=== PATIENT | female | born 1975 | race African-American/Black ===

== ENCOUNTER 2022-08-30 12:05 | Inpatient (IN) | payer OTHER ==
[2022-08-30] MEDS ORDERED: HYDROmorphone HCl 2 MG/ML VIAL IVPUSH ONE (13:38)
[2022-08-30] MEDS ORDERED: HYDROmorphone HCL CARPU-JECT 2 MG/1 ML DISP.SYRIN IVPUSH ONE (13:38)
[2022-08-30] MEDS ORDERED: HYDROmorphone HCl 2 MG/ML VIAL ONE (13:58)
[2022-08-30 14:33] LABS: BASO % 0.8 % (0-2.0); EOS % 2.7 % (0-4.5); HEMOGLOBIN 13.9 GM/dL (10.7-15.3); LYMPH % 23.8 % (8-40); MCH 30.2 pg (25.7-33.7); MCHC 33.1 g/dl (32.0-36.0); MEAN CELL VOLUME 91.2 fl (80-96); MEAN PLT VOLUME 7.7 fl (7.5-11.1); MONO % 7.2 % (3.8-10.2); NEUT % 65.5 % (42.8-82.8); PLATELET COUNT 341 10^3/uL (134-434); RDW 14.2 % (11.6-15.6); WHITE BLOOD COUNT 9.4 K/mm3 (4.0-10.0)
[2022-08-30 14:42] LABS: CALCIUM 9.5 mg/dL (8.5-10.1)
[2022-08-30 14:44] LABS: BLOOD UREA NITROGEN 11.6 mg/dL (7-18)
[2022-08-30 14:46] LABS: CREATININE 0.9 mg/dL (0.55-1.3)
[2022-08-30 14:48] LABS: BILIRUBIN,TOTAL 0.4 mg/dL (0.2-1); TOT PROT 7.1 g/dl (6.4-8.2)
[2022-08-30 15:13] LABS: ACTIVATED PTT 29.5 SECONDS (25.2-36.5); INR 1.06 (0.83-1.09); PROTHROMBIN TIME (PATIENT) 12.2 SEC (9.7-13.0)
[2022-08-30] MEDS ORDERED: HYDROmorphone HCl 2 MG/ML VIAL IVPUSH PRN (22:58)
[2022-08-30] MEDS ORDERED: ACETAMINOPHEN 1000 MG/100 ML BAG IVPB PRN (23:00)
[2022-08-31] MEDS: ACETAMINOPHEN 1000 MG/100 ML BAG IVPB SCH ×5 (02:14→20:09)
[2022-08-31] MEDS: PREGABALIN 50 MG CAPSULE PO SCH ×4 (02:14→21:33)
[2022-08-31 05:07] VITALS: BMI 33.5
[2022-08-31] MEDS: LACTATED RINGERS SOLUTION 1,000 ML/1,000 ML INFUS.BAG IV SCH (09:17)
[2022-08-31] MEDS: SERTRALINE HCL 50 MG TABLET (FP) PO SCH (09:25)
[2022-08-31] MEDS: DOCUSATE SODIUM 100 MG CAPSULE (FP) PO SCH ×2 (09:25→21:33)
[2022-08-31 10:07] LABS: BASO % 0.6 % (0-2.0); EOS % 3.4 % (0-4.5); HEMATOCRIT 39.2 % (32.4-45.2); HEMOGLOBIN 13.3 GM/dL (10.7-15.3); MCH 30.6 pg (25.7-33.7); MCHC 33.9 g/dl (32.0-36.0); MEAN CELL VOLUME 90.1 fl (80-96); MEAN PLT VOLUME 8.1 fl (7.5-11.1); MONO % 7.2 % (3.8-10.2); NEUT % 59.8 % (42.8-82.8); PLATELET COUNT 327 10^3/uL (134-434); RBC 4.36 M/mm3 (3.60-5.2); RDW 13.9 % (11.6-15.6); WHITE BLOOD COUNT 8.1 K/mm3 (4.0-10.0)
[2022-08-31 10:35] LABS: ALBUMIN 3.6 g/dl (3.4-5.0); BLOOD UREA NITROGEN 7.1 mg/dL (7-18); MAGNESIUM 2.3 mg/dL (1.8-2.4)
[2022-08-31 10:38] LABS: CREATININE 0.9 mg/dL (0.55-1.3); PHOSPHOROUS 4.3 mg/dL (2.5-4.9)
[2022-08-31 10:40] LABS: TOT PROT 6.5 g/dl (6.4-8.2)
[2022-08-31] MEDS: HYDROmorphone HCl 2 MG/ML VIAL IVPUSH PRN ×2 (13:02→21:33)
[2022-09-01] MEDS: ACETAMINOPHEN 1000 MG/100 ML BAG IVPB SCH ×4 (02:00→21:38)
[2022-09-01] MEDS: PREGABALIN 50 MG CAPSULE PO SCH ×3 (05:44→21:26)
[2022-09-01 09:34] LABS: BASO % 0.8 % (0-2.0); HEMATOCRIT 38.6 % (32.4-45.2); HEMOGLOBIN 13.4 GM/dL (10.7-15.3); LYMPH % 30.5 % (8-40); MCH 31.1 pg (25.7-33.7); MCHC 34.7 g/dl (32.0-36.0); MEAN CELL VOLUME 89.4 fl (80-96); MEAN PLT VOLUME 8.2 fl (7.5-11.1); MONO % 7.1 % (3.8-10.2); NEUT % 57.6 % (42.8-82.8); PLATELET COUNT 317 10^3/uL (134-434); RBC 4.32 M/mm3 (3.60-5.2); RDW 13.9 % (11.6-15.6)
[2022-09-01 10:08] LABS: CALCIUM 9.1 mg/dL (8.5-10.1)
[2022-09-01 10:09] LABS: ALBUMIN 3.3 g/dl (3.4-5.0); BLOOD UREA NITROGEN 9.3 mg/dL (7-18); MAGNESIUM 2.2 mg/dL (1.8-2.4)
[2022-09-01] MEDS: HYDROmorphone HCl 2 MG/ML VIAL IVPB PRN ×2 (10:09→20:37)
[2022-09-01] MEDS: SERTRALINE HCL 50 MG TABLET (FP) PO SCH (10:11)
[2022-09-01 10:12] LABS: CREATININE 0.8 mg/dL (0.55-1.3)
[2022-09-01 10:13] LABS: BILIRUBIN,TOTAL 0.8 mg/dL (0.2-1); TOT PROT 6.2 g/dl (6.4-8.2)
[2022-09-01] MEDS: LACTATED RINGERS SOLUTION 1,000 ML/1,000 ML INFUS.BAG IV SCH (11:23)
[2022-09-01] MEDS: DOCUSATE SODIUM 100 MG CAPSULE (FP) PO SCH ×2 (11:23→21:26)
[2022-09-01] MEDS: HEPARIN NA (PORCINE) 5,000 UNITS/ML 1ML VIAL SQ SCH (21:26)
[2022-09-02] MEDS: ACETAMINOPHEN 1000 MG/100 ML BAG IVPB SCH ×4 (01:52→19:33)
[2022-09-02] MEDS: HYDROmorphone HCl 2 MG/ML VIAL IVPB PRN ×4 (02:37→22:08)
[2022-09-02] MEDS: PREGABALIN 50 MG CAPSULE PO SCH ×3 (05:40→21:00)
[2022-09-02 10:30] LABS: INR 1.18 (0.83-1.09); PROTHROMBIN TIME (PATIENT) 13.6 SEC (9.7-13.0)
[2022-09-02 10:35] LABS: BASO % 0.7 % (0-2.0); HEMATOCRIT 39.5 % (32.4-45.2); HEMOGLOBIN 13.4 GM/dL (10.7-15.3); LYMPH % 36.9 % (8-40); MCH 30.6 pg (25.7-33.7); MEAN CELL VOLUME 90.2 fl (80-96); MEAN PLT VOLUME 8.1 fl (7.5-11.1); MONO % 7.6 % (3.8-10.2); NEUT % 50.8 % (42.8-82.8); PLATELET COUNT 323 10^3/uL (134-434); RBC 4.37 M/mm3 (3.60-5.2); WHITE BLOOD COUNT 7.6 K/mm3 (4.0-10.0)
[2022-09-02 10:56] LABS: CALCIUM 8.9 mg/dL (8.5-10.1)
[2022-09-02 10:57] LABS: ALBUMIN 3.3 g/dl (3.4-5.0); BLOOD UREA NITROGEN 8.3 mg/dL (7-18); MAGNESIUM 2.1 mg/dL (1.8-2.4)
[2022-09-02 11:00] LABS: CREATININE 0.8 mg/dL (0.55-1.3)
[2022-09-02 11:01] LABS: BILIRUBIN,TOTAL 0.6 mg/dL (0.2-1); TOT PROT 6.2 g/dl (6.4-8.2)
[2022-09-02] MEDS: HEPARIN NA (PORCINE) 5,000 UNITS/ML 1ML VIAL SQ SCH (11:24)
[2022-09-02] MEDS: DOCUSATE SODIUM 100 MG CAPSULE (FP) PO SCH ×2 (11:26→21:00)
[2022-09-02] MEDS: SERTRALINE HCL 50 MG TABLET (FP) PO SCH (11:26)
[2022-09-02 14:55] LABS: EPI CELLS 24 /uL (0-25.1); HYALINE CASTS 0 /uL (0-3.1); PH,URINE 7.5 (5.0-8.0); URINE APPEARANCE CLEAR; URINE BACTERIA 732 /uL (0-1359); URINE BILIRUBIN NEGATIVE (NEGATIVE); URINE COLOR YELLOW; URINE GLUCOSE (UA) NEGATIVE (NEGATIVE); URINE KETONE NEGATIVE (NEGATIVE); URINE LEUK ESTERASE 1+ (NEGATIVE); URINE NITRITE NEGATIVE (NEGATIVE); URINE PROTEIN NEGATIVE (NEGATIVE); URINE RBC 9 /uL (0-23.9); URINE UROBILINOGEN 0.2 mg/dL (0.2-1.0); URINE WBC 46 /uL (0-25.8)
[2022-09-02] MEDS ORDERED: CEFTRIAXONE 1 GM in DEXTROSE 5%-WATER - 50 ML IVPB ONE (15:19)
[2022-09-02 16:21] LABS: EPI CELLS 34 /uL (0-25.1); HYALINE CASTS 0 /uL (0-3.1); URINE APPEARANCE CLOUDY; URINE BACTERIA 1763 /uL (0-1359); URINE BILIRUBIN NEGATIVE (NEGATIVE); URINE COLOR YELLOW; URINE GLUCOSE (UA) NEGATIVE (NEGATIVE); URINE KETONE NEGATIVE (NEGATIVE); URINE LEUK ESTERASE 1+ (NEGATIVE); URINE NITRITE NEGATIVE (NEGATIVE); URINE PROTEIN NEGATIVE (NEGATIVE); URINE RBC 10 /uL (0-23.9); URINE UROBILINOGEN 0.2 mg/dL (0.2-1.0); URINE WBC 46 /uL (0-25.8)
[2022-09-03] MEDS: LACTATED RINGERS SOLUTION 1,000 ML/1,000 ML INFUS.BAG IV SCH (00:10)
[2022-09-03] MEDS: ACETAMINOPHEN 1000 MG/100 ML BAG IVPB SCH ×4 (01:57→20:08)
[2022-09-03] MEDS: PREGABALIN 50 MG CAPSULE PO SCH ×3 (06:09→22:24)
[2022-09-03] MEDS ORDERED: CEFTRIAXONE 1 GM in DEXTROSE 5%-WATER - 50 ML IVPB SCH (10:00)
[2022-09-03] MEDS: SERTRALINE HCL 50 MG TABLET (FP) PO SCH (10:50)
[2022-09-03] MEDS: DOCUSATE SODIUM 100 MG CAPSULE (FP) PO SCH ×2 (10:50→22:24)
[2022-09-03 11:26] LABS: BASO % 0.9 % (0-2.0); EOS % 4.1 % (0-4.5); HEMATOCRIT 39.9 % (32.4-45.2); HEMOGLOBIN 13.4 GM/dL (10.7-15.3); LYMPH % 30.3 % (8-40); MCH 30.5 pg (25.7-33.7); MCHC 33.7 g/dl (32.0-36.0); MEAN CELL VOLUME 90.7 fl (80-96); MEAN PLT VOLUME 8.2 fl (7.5-11.1); MONO % 6.9 % (3.8-10.2); NEUT % 57.8 % (42.8-82.8); PLATELET COUNT 331 10^3/uL (134-434); RDW 13.7 % (11.6-15.6); WHITE BLOOD COUNT 7.4 K/mm3 (4.0-10.0)
[2022-09-03 11:33] LABS: INR 1.11 (0.83-1.09); PROTHROMBIN TIME (PATIENT) 12.8 SEC (9.7-13.0)
[2022-09-03 12:03] LABS: CALCIUM 9.2 mg/dL (8.5-10.1)
[2022-09-03 12:04] LABS: ALBUMIN 3.5 g/dl (3.4-5.0); MAGNESIUM 2.2 mg/dL (1.8-2.4)
[2022-09-03 12:09] LABS: CREATININE 0.9 mg/dL (0.55-1.3); TOT PROT 6.5 g/dl (6.4-8.2)
[2022-09-03 12:21] LABS: BILIRUBIN,TOTAL 0.4 mg/dL (0.2-1)
[2022-09-03] MEDS: HYDROmorphone HCl 2 MG/ML VIAL IVPB PRN ×2 (17:00→23:27)
[2022-09-04] MEDS: LACTATED RINGERS SOLUTION 1,000 ML/1,000 ML INFUS.BAG IV SCH (00:28)
[2022-09-04] MEDS: ACETAMINOPHEN 1000 MG/100 ML BAG IVPB SCH ×4 (02:41→20:32)
[2022-09-04] MEDS: HYDROmorphone HCl 2 MG/ML VIAL IVPB PRN (06:05)
[2022-09-04] MEDS: PREGABALIN 50 MG CAPSULE PO SCH ×3 (06:06→21:07)
[2022-09-04] MEDS ORDERED: DEXMEDETOMIDINE HCL 200 MCG/2 ML IVPB ONE (07:02)
[2022-09-04] MEDS ORDERED: ACETAMINOPHEN INJECTION 100 ML IVPB ONE (07:02)
[2022-09-04] MEDS ORDERED: PROPOFOL 40 ML ONE ×3 (07:03→11:59)
[2022-09-04] MEDS ORDERED: KETAMINE HCL 500 MG/10 ML VIAL ONE (07:04)
[2022-09-04] MEDS ORDERED: MIDAZOLAM HCL 2 MG/2 ML SINGLE DOSE VIAL ONE (07:04)
[2022-09-04] MEDS ORDERED: SUCCINYLCHOLINE CHLORIDE 200 MG/10 ML SYRINGE ONE (07:05)
[2022-09-04] MEDS ORDERED: THROMBIN (BOVINE) 5,000 UNIT VIAL TP ONE (07:18)
[2022-09-04] MEDS ORDERED: ceFAZolin SODIUM 1 GM VIAL ONE (07:18)
[2022-09-04] MEDS ORDERED: PROPOFOL 60 ML ONE (07:27)
[2022-09-04] MEDS ORDERED: oxyCODONE HCL 5 MG TABLET PO PRN ×3 (08:53→14:08)
[2022-09-04] MEDS ORDERED: diphenhydrAMINE HCL 25 MG CAPSULE (FP) PO PRN ×2 (08:53→14:08)
[2022-09-04] MEDS ORDERED: ONDANSETRON 4 MG/2 ML VIAL IVPUSH PRN ×3 (08:53→14:08)
[2022-09-04] MEDS ORDERED: HYDROmorphone *PCA* 10MG/50ML DISP.SYRIN PCA SCH (09:00)
[2022-09-04] MEDS ORDERED: ceFAZolin SODIUM 1 GM VIAL IVPB ONE ×2 (09:00→09:24)
[2022-09-04] MEDS ORDERED: ALBUMIN HUMAN 5% 500 ML IV SOLUTION IV ONE ×3 (09:00→14:08)
[2022-09-04] MEDS ORDERED: LACTATED RINGERS SOLUTION 1,000 ML/1,000 ML INFUS.BAG IV SCH (09:00)
[2022-09-04] MEDS ORDERED: PROPOFOL 80 ML ONE (09:49)
[2022-09-04] MEDS ORDERED: FOLIC ACID 1 MG TABLET (FP) PO SCH (10:00)
[2022-09-04] MEDS ORDERED: FERROUS SO4 325 MG TABLET (FP) PO SCH (10:00)
[2022-09-04] MEDS ORDERED: DOCUSATE SODIUM 100 MG CAPSULE (FP) PO SCH (14:00)
[2022-09-04] MEDS: HYDROmorphone *PCA* 10MG/50ML DISP.SYRIN PCA SCH (14:45)
[2022-09-04] MEDS: SERTRALINE HCL 50 MG TABLET (FP) PO SCH (17:25)
[2022-09-04] MEDS: oxyCODONE HCL 5 MG TABLET PO PRN (17:43)
[2022-09-04 20:17] LABS: BASO % 0.2 % (0-2.0); EOS % 0.1 % (0-4.5); HEMATOCRIT 37.5 % (32.4-45.2); HEMOGLOBIN 12.6 GM/dL (10.7-15.3); LYMPH % 7.1 % (8-40); MCH 30.4 pg (25.7-33.7); MCHC 33.6 g/dl (32.0-36.0); MEAN CELL VOLUME 90.5 fl (80-96); MEAN PLT VOLUME 7.8 fl (7.5-11.1); MONO % 4.2 % (3.8-10.2); NEUT % 88.4 % (42.8-82.8); PLATELET COUNT 301 10^3/uL (134-434); RBC 4.14 M/mm3 (3.60-5.2); RDW 13.9 % (11.6-15.6); WHITE BLOOD COUNT 15.6 K/mm3 (4.0-10.0)
[2022-09-04 20:23] LABS: INR 1.21 (0.83-1.09); PROTHROMBIN TIME (PATIENT) 13.9 SEC (9.7-13.0)
[2022-09-04 20:39] LABS: CALCIUM 9.1 mg/dL (8.5-10.1)
[2022-09-04 20:40] LABS: ALBUMIN 3.9 g/dl (3.4-5.0); BLOOD UREA NITROGEN 6.2 mg/dL (7-18); MAGNESIUM 1.8 mg/dL (1.8-2.4)
[2022-09-04 20:43] LABS: CREATININE 0.7 mg/dL (0.55-1.3)
[2022-09-04 20:44] LABS: BILIRUBIN,TOTAL 0.6 mg/dL (0.2-1); TOT PROT 6.7 g/dl (6.4-8.2)
[2022-09-04] MEDS ORDERED: CEFAZOLIN 1 GM in DEXTROSE 5%-WATER - 50 ML IVPB SCH (21:00)
[2022-09-04] MEDS: CEFAZOLIN 1 GM in DEXTROSE 5%-WATER - 50 ML IVPB SCH (21:06)
[2022-09-05] MEDS: oxyCODONE HCL 5 MG TABLET PO PRN ×2 (01:32→20:03)
[2022-09-05] MEDS: ACETAMINOPHEN 1000 MG/100 ML BAG IVPB SCH ×3 (02:01→14:55)
[2022-09-05] MEDS: CEFAZOLIN 1 GM in DEXTROSE 5%-WATER - 50 ML IVPB SCH ×3 (05:04→20:03)
[2022-09-05] MEDS: PREGABALIN 50 MG CAPSULE PO SCH ×3 (05:04→21:27)
[2022-09-05 08:51] LABS: BASO % 0.1 % (0-2.0); EOS % 0.3 % (0-4.5); HEMATOCRIT 37.7 % (32.4-45.2); HEMOGLOBIN 12.7 GM/dL (10.7-15.3); LYMPH % 8.4 % (8-40); MCH 30.5 pg (25.7-33.7); MCHC 33.6 g/dl (32.0-36.0); MEAN CELL VOLUME 90.7 fl (80-96); MEAN PLT VOLUME 7.9 fl (7.5-11.1); MONO % 6.7 % (3.8-10.2); NEUT % 84.5 % (42.8-82.8); PLATELET COUNT 323 10^3/uL (134-434); RBC 4.16 M/mm3 (3.60-5.2); RDW 13.9 % (11.6-15.6); WHITE BLOOD COUNT 16.4 K/mm3 (4.0-10.0)
[2022-09-05 08:54] LABS: INR 1.28 (0.83-1.09); PROTHROMBIN TIME (PATIENT) 14.7 SEC (9.7-13.0)
[2022-09-05 09:24] LABS: ALBUMIN 3.6 g/dl (3.4-5.0); CALCIUM 9.5 mg/dL (8.5-10.1)
[2022-09-05 09:26] LABS: BLOOD UREA NITROGEN 4.2 mg/dL (7-18)
[2022-09-05 09:28] LABS: CREATININE 0.7 mg/dL (0.55-1.3)
[2022-09-05 09:30] LABS: TOT PROT 6.6 g/dl (6.4-8.2)
[2022-09-05] MEDS: FERROUS SO4 325 MG TABLET (FP) PO SCH (10:23)
[2022-09-05] MEDS: SERTRALINE HCL 50 MG TABLET (FP) PO SCH (10:23)
[2022-09-05] MEDS: FOLIC ACID 1 MG TABLET (FP) PO SCH (10:23)
[2022-09-05] MEDS: HYDROmorphone *PCA* 10MG/50ML DISP.SYRIN PCA SCH (14:53)
[2022-09-05] MEDS ORDERED: CEFTRIAXONE 1 GM in DEXTROSE 5%-WATER - 50 ML IVPB SCH (18:00)
[2022-09-05] MEDS: ACETAMINOPHEN 1000 MG/100 ML BAG IVPB PRN (23:26)
[2022-09-05] MEDS: BENZOCAINE/MENTH/CETYLPYRD CL 1 EACH LOZENGE MM PRN (23:26)
[2022-09-06] MEDS: oxyCODONE HCL 5 MG TABLET PO PRN ×4 (04:42→23:39)
[2022-09-06] MEDS: CEFAZOLIN 1 GM in DEXTROSE 5%-WATER - 50 ML IVPB SCH ×2 (05:12→12:26)
[2022-09-06] MEDS: PREGABALIN 50 MG CAPSULE PO SCH ×3 (05:12→21:45)
[2022-09-06] MEDS: ACETAMINOPHEN 1000 MG/100 ML BAG IVPB PRN (08:21)
[2022-09-06] MEDS ORDERED: DEXAMETHASONE SOD PHOSPHATE 10 MG/1 ML VIAL IVPUSH ONE (09:03)
[2022-09-06 09:36] LABS: BASO % 0.2 % (0-2.0); EOS % 0.2 % (0-4.5); HEMATOCRIT 35.7 % (32.4-45.2); LYMPH % 10.2 % (8-40); MCH 30.5 pg (25.7-33.7); MCHC 33.5 g/dl (32.0-36.0); MEAN CELL VOLUME 91.1 fl (80-96); MEAN PLT VOLUME 8.2 fl (7.5-11.1); MONO % 6.7 % (3.8-10.2); NEUT % 82.7 % (42.8-82.8); PLATELET COUNT 303 10^3/uL (134-434); RBC 3.92 M/mm3 (3.60-5.2); RDW 13.7 % (11.6-15.6); WHITE BLOOD COUNT 19.2 K/mm3 (4.0-10.0)
[2022-09-06 10:11] LABS: ALBUMIN 3.2 g/dl (3.4-5.0); BLOOD UREA NITROGEN 3.2 mg/dL (7-18)
[2022-09-06 10:13] LABS: CALCIUM 9.4 mg/dL (8.5-10.1); TOT PROT 6.3 g/dl (6.4-8.2)
[2022-09-06 10:18] LABS: CREATININE 0.7 mg/dL (0.55-1.3)
[2022-09-06 10:19] LABS: BILIRUBIN,TOTAL 0.8 mg/dL (0.2-1)
[2022-09-06] MEDS: SERTRALINE HCL 50 MG TABLET (FP) PO SCH (10:32)
[2022-09-06] MEDS: FERROUS SO4 325 MG TABLET (FP) PO SCH (10:35)
[2022-09-06] MEDS: FOLIC ACID 1 MG TABLET (FP) PO SCH (10:35)
[2022-09-06] MEDS: HYDROmorphone *PCA* 10MG/50ML DISP.SYRIN PCA SCH (15:11)
[2022-09-06] MEDS: BENZOCAINE/MENTH/CETYLPYRD CL 1 EACH LOZENGE MM PRN (18:27)
[2022-09-06] MEDS: ACETAMINOPHEN 1000 MG/100 ML BAG IVPB SCH ×2 (18:41→23:40)
[2022-09-06] MEDS: LACTATED RINGERS SOLUTION 1,000 ML/1,000 ML INFUS.BAG IV SCH (18:43)
[2022-09-06] MEDS: diazePAM 2 MG TABLET PO PRN (23:41)
[2022-09-07] MEDS: ACETAMINOPHEN 1000 MG/100 ML BAG IVPB SCH ×4 (07:19→23:19)
[2022-09-07] MEDS: PREGABALIN 50 MG CAPSULE PO SCH ×3 (07:19→21:31)
[2022-09-07] MEDS: SERTRALINE HCL 50 MG TABLET (FP) PO SCH (09:26)
[2022-09-07] MEDS: oxyCODONE HCL 5 MG TABLET PO PRN ×2 (09:27→18:15)
[2022-09-07] MEDS: FOLIC ACID 1 MG TABLET (FP) PO SCH (09:28)
[2022-09-07] MEDS: FERROUS SO4 325 MG TABLET (FP) PO SCH (09:28)
[2022-09-07 09:57] LABS: BASO % 0.3 % (0-2.0); LYMPH % 9.7 % (8-40); MCH 30.4 pg (25.7-33.7); MCHC 33.3 g/dl (32.0-36.0); MEAN CELL VOLUME 91.3 fl (80-96); MEAN PLT VOLUME 8.2 fl (7.5-11.1); MONO % 3.2 % (3.8-10.2); NEUT % 86.8 % (42.8-82.8); PLATELET COUNT 319 10^3/uL (134-434); RBC 3.94 M/mm3 (3.60-5.2); RDW 14.2 % (11.6-15.6); WHITE BLOOD COUNT 18.9 K/mm3 (4.0-10.0)
[2022-09-07] MEDS: POLYETHYLENE GLYCOL (HEALTHYLAX) 3350 17 GM PACKET PO SCH ×2 (10:13→21:31)
[2022-09-07 10:59] LABS: ALBUMIN 3.2 g/dl (3.4-5.0); BLOOD UREA NITROGEN 6.2 mg/dL (7-18); CALCIUM 9.7 mg/dL (8.5-10.1); CREATININE 0.8 mg/dL (0.55-1.3); MAGNESIUM 2.2 mg/dL (1.8-2.4)
[2022-09-07 11:01] LABS: BILIRUBIN,TOTAL 0.6 mg/dL (0.2-1); TOT PROT 6.6 g/dl (6.4-8.2)
[2022-09-07] MEDS: DOCUSATE SODIUM 100 MG CAPSULE (FP) PO SCH ×2 (15:11→21:32)
[2022-09-07] MEDS: LACTATED RINGERS SOLUTION 1,000 ML/1,000 ML INFUS.BAG IV SCH (20:18)
[2022-09-07] MEDS: diazePAM 2 MG TABLET PO PRN (23:19)
[2022-09-08] MEDS: LACTATED RINGERS SOLUTION 1,000 ML/1,000 ML INFUS.BAG IV SCH (02:12)
[2022-09-08] MEDS: PREGABALIN 50 MG CAPSULE PO SCH ×3 (05:08→21:59)
[2022-09-08] MEDS: DOCUSATE SODIUM 100 MG CAPSULE (FP) PO SCH ×3 (05:08→21:59)
[2022-09-08] MEDS: oxyCODONE HCL 5 MG TABLET PO PRN ×3 (05:43→21:56)
[2022-09-08] MEDS: ACETAMINOPHEN 1000 MG/100 ML BAG IVPB SCH ×2 (07:25→12:41)
[2022-09-08 09:26] LABS: BASO % 0.5 % (0-2.0); EOS % 2.8 % (0-4.5); HEMOGLOBIN 12.7 GM/dL (10.7-15.3); LYMPH % 23.7 % (8-40); MCH 30.7 pg (25.7-33.7); MCHC 33.3 g/dl (32.0-36.0); MEAN CELL VOLUME 92.1 fl (80-96); MEAN PLT VOLUME 7.9 fl (7.5-11.1); MONO % 5.9 % (3.8-10.2); NEUT % 67.1 % (42.8-82.8); PLATELET COUNT 356 10^3/uL (134-434); RBC 4.13 M/mm3 (3.60-5.2); RDW 13.8 % (11.6-15.6); WHITE BLOOD COUNT 15.1 K/mm3 (4.0-10.0)
[2022-09-08 09:45] LABS: CALCIUM 9.6 mg/dL (8.5-10.1)
[2022-09-08 09:46] LABS: BLOOD UREA NITROGEN 6.8 mg/dL (7-18); MAGNESIUM 2.2 mg/dL (1.8-2.4)
[2022-09-08 09:47] LABS: ALBUMIN 3.2 g/dl (3.4-5.0)
[2022-09-08 09:49] LABS: CREATININE 0.8 mg/dL (0.55-1.3)
[2022-09-08 09:51] LABS: TOT PROT 6.5 g/dl (6.4-8.2)
[2022-09-08 09:52] LABS: BILIRUBIN,TOTAL 0.6 mg/dL (0.2-1)
[2022-09-08] MEDS: FERROUS SO4 325 MG TABLET (FP) PO SCH (10:26)
[2022-09-08] MEDS: FOLIC ACID 1 MG TABLET (FP) PO SCH (10:26)
[2022-09-08] MEDS: POLYETHYLENE GLYCOL (HEALTHYLAX) 3350 17 GM PACKET PO SCH ×2 (10:26→21:59)
[2022-09-08] MEDS: SERTRALINE HCL 50 MG TABLET (FP) PO SCH (10:27)
[2022-09-08] MEDS: LIDOCAINE 5% TOPICAL PATCH TP SCH (11:44)
[2022-09-08] MEDS: diazePAM 2 MG TABLET PO PRN ×2 (15:10→21:58)
[2022-09-08] MEDS: LIDOCAINE PATCH REMOVAL MC SCH (21:59)
[2022-09-08] MEDS: CEPHALEXIN MONOHYDRATE 500 MG CAPSULE (UD) PO SCH (21:59)
[2022-09-09] MEDS: oxyCODONE HCL 5 MG TABLET PO PRN ×4 (04:30→22:07)
[2022-09-09] MEDS: DOCUSATE SODIUM 100 MG CAPSULE (FP) PO SCH ×3 (06:42→22:07)
[2022-09-09] MEDS: PREGABALIN 50 MG CAPSULE PO SCH ×3 (06:42→22:07)
[2022-09-09] MEDS: LIDOCAINE 5% TOPICAL PATCH TP SCH (09:10)
[2022-09-09] MEDS: POLYETHYLENE GLYCOL (HEALTHYLAX) 3350 17 GM PACKET PO SCH ×2 (09:10→22:08)
[2022-09-09] MEDS: CEPHALEXIN MONOHYDRATE 500 MG CAPSULE (UD) PO SCH ×2 (09:11→22:07)
[2022-09-09] MEDS: SERTRALINE HCL 50 MG TABLET (FP) PO SCH (09:16)
[2022-09-09] MEDS: FOLIC ACID 1 MG TABLET (FP) PO SCH (09:16)
[2022-09-09] MEDS: FERROUS SO4 325 MG TABLET (FP) PO SCH (09:16)
[2022-09-09] MEDS: diazePAM 2 MG TABLET PO PRN (17:46)
[2022-09-09] MEDS ORDERED: ACETAMINOPHEN 325 MG TABLET (FP) PO ONE (19:44)
[2022-09-09] MEDS ORDERED: oxyCODONE HCL 5 MG TABLET PO PRN (21:29)
[2022-09-09] MEDS: LIDOCAINE PATCH REMOVAL MC SCH (22:08)
[2022-09-10] MEDS: oxyCODONE HCL 5 MG TABLET PO PRN ×3 (01:24→11:29)
[2022-09-10] MEDS: DOCUSATE SODIUM 100 MG CAPSULE (FP) PO SCH ×2 (06:03→13:39)
[2022-09-10] MEDS: PREGABALIN 50 MG CAPSULE PO SCH ×2 (06:03→13:39)
[2022-09-10 09:54] LABS: BASO % 0.6 % (0-2.0); EOS % 3.2 % (0-4.5); HEMATOCRIT 36.6 % (32.4-45.2); HEMOGLOBIN 12.5 GM/dL (10.7-15.3); LYMPH % 19.8 % (8-40); MCH 31.3 pg (25.7-33.7); MEAN CELL VOLUME 92.1 fl (80-96); MEAN PLT VOLUME 7.6 fl (7.5-11.1); MONO % 4.4 % (3.8-10.2); PLATELET COUNT 371 10^3/uL (134-434); RBC 3.97 M/mm3 (3.60-5.2); RDW 14.2 % (11.6-15.6); WHITE BLOOD COUNT 11.5 K/mm3 (4.0-10.0)
[2022-09-10 10:38] LABS: CALCIUM 9.6 mg/dL (8.5-10.1)
[2022-09-10 10:39] LABS: ALBUMIN 3.1 g/dl (3.4-5.0); BLOOD UREA NITROGEN 11.5 mg/dL (7-18); MAGNESIUM 2.4 mg/dL (1.8-2.4)
[2022-09-10 10:42] LABS: CREATININE 0.9 mg/dL (0.55-1.3)
[2022-09-10 10:43] LABS: BILIRUBIN,TOTAL 0.7 mg/dL (0.2-1)
[2022-09-10 10:44] LABS: TOT PROT 6.4 g/dl (6.4-8.2)
[2022-09-10] MEDS: POLYETHYLENE GLYCOL (HEALTHYLAX) 3350 17 GM PACKET PO SCH (11:24)
[2022-09-10] MEDS: CEPHALEXIN MONOHYDRATE 500 MG CAPSULE (UD) PO SCH (11:24)
[2022-09-10] MEDS: SERTRALINE HCL 50 MG TABLET (FP) PO SCH (11:24)
[2022-09-10] MEDS: FERROUS SO4 325 MG TABLET (FP) PO SCH (11:24)
[2022-09-10] MEDS: FOLIC ACID 1 MG TABLET (FP) PO SCH (11:24)
[2022-09-10] MEDS: LIDOCAINE 5% TOPICAL PATCH TP SCH (11:25)
[2022-09-10 15:53] VITALS: BP 131/87; PULSE 98; RESP 18; TEMP 99
== END 2022-09-10 15:00 | DRG 454 ==
LOC: JER 12:05 → JERBED 19:54 → J8W 08-31 01:34
PROVIDERS: ADMIT Internal Medicine; ATTEND Nurse Practitioner Acute Care
PROC: 0RG2071 Fusion of 2 or more Cervical Vertebral Joints with Autologous Tissue Substitute, Posterior Approach, Posterior Column, Open Approach (ICD-10-PCS; 2022-09-04)
PROC: 0RT30ZZ Resection of Cervical Vertebral Disc, Open Approach (ICD-10-PCS; 2022-09-04)
PROC: 01N10ZZ Release Cervical Nerve, Open Approach (ICD-10-PCS; 2022-09-04)
PROC: 0RP104Z Removal of Internal Fixation Device from Cervical Vertebral Joint, Open Approach (ICD-10-PCS; 2022-09-04)
PROC: 4A10X4G Monitoring of Central Nervous Electrical Activity, Intraoperative, External Approach (ICD-10-PCS; 2022-09-04)
PROC: 0RG10A0 Fusion of Cervical Vertebral Joint with Interbody Fusion Device, Anterior Approach, Anterior Column, Open Approach (ICD-10-PCS; principal; 2022-09-04 08:00)
DX: M50.121 Cervical disc disorder at C4-C5 level with radiculopathy (principal); M50.01 Cervical disc disorder with myelopathy, high cervical region; M50.021 Cervical disc disorder at C4-C5 level with myelopathy; N39.0 Urinary tract infection, site not specified; G43.909 Migraine, unspecified, not intractable, without status migrainosus; M54.9 Dorsalgia, unspecified; M48.02 Spinal stenosis, cervical region; F41.8 Other specified anxiety disorders; N20.0 Calculus of kidney; M46.1 Sacroiliitis, not elsewhere classified; M40.292 Other kyphosis, cervical region; B96.20 Unspecified Escherichia coli [E. coli] as the cause of diseases classified elsewhere
CPT/HCPCS: 0241U-QW; 36415; 71045-TC-FY; 72040-TC; 72100-TC-FY; 72125-TC; 72131-TC; 72141-TC; 76000-TC-FY; 80048; 80053; 81003; 82306; 83735; 84100; 84703; 85025; 85610; 85730; 86850; 86900; 86901; 86922; 87086; 87186; 93005; 93010; 94010; 94760; 97116-GP; 97161-GP; 99285-25; C1713; C9803-CS; J1100; J1644; U0003; U0005